=== PATIENT | female | born 2000 | race Caucasian/White ===

== ENCOUNTER 2021-08-11 09:33 | Emergency (ER) | payer OTHER ==
[2021-08-11 09:42] VITALS: RESP 18
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
[2021-08-11] MEDS ORDERED: DIPH,PERTUS(ACELL)TETVAC-LF 0.5 ML VIAL IM ONE (10:10)
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
[2021-08-11 11:39] VITALS: BP 102/65; PULSE 89; TEMP 97.6
== END 2021-08-11 11:39 | disposition home or self-care (01) ==
LOC: EC 09:33
DX: S80.01XA Contusion of right knee, initial encounter (principal); V49.40XA Driver injured in collision with unspecified motor vehicles in traffic accident, initial encounter; Y92.481 Parking lot as the place of occurrence of the external cause
CPT/HCPCS: 99284